=== PATIENT | female | born 2000 | race Caucasian/White ===

== ENCOUNTER 2025-01-01 12:56 | Emergency (ER) | payer BC ==
[~2025-01-01] VITALS: Ht 162.6 cm; Wt 62.6 kg
[~2025-01-01 12:56] MED LIST: ENSKYCE1 EACH PO; ESCITALOPRAM OX10 MG PO; MECLIZINE HCL25 MG PO; OMEPRAZOLE20 MG PO; ONDANSETRON ODT4 MG PO
[2025-01-01] MEDS ORDERED: ASPIRIN 325 MG TAB PO ONE (13:45)
[2025-01-01 14:03] LABS: BASOPHILS 0.4 % (0-2); EOSINOPHILS 0.5 % (0-6); HEMATOCRIT 38.8 % (35.0-50.0); HEMOGLOBIN 13.6 g/dL (12.0-18.0); LYMPHOCYTES 31.8 % (24-44); MCH 32.1 (27-36); MCV 91.6 fl (81-99); MONOCYTES 7.7 % (0-12); NEUTROPHILS 59.6 % (39-80); PLATELET COUNT 266 K/uL (140-440); RBC 4.24 M/ul (4.3-5.7)
[2025-01-01 14:25] LABS: ALBUMIN 3.7 g/dL (3.4-5.0); ALBUMIN/GLOBULIN RATIO 1.12 (1.1-2.4); ALKALINE PHOSPHATASE 48 U/L (46-116); ALT (SGPT) 22 U/L (14-59); ANION GAP 11.9 (7-21); AST (SGOT) 13 U/L (15-37); BILIRUBIN, TOTAL 0.4 mg/dL (0.2-1.0); BUN/CREATININE RATIO 17.74 (6.0-28.6); CALCIUM 9.1 mg/dL (8.5-10.1); CARBON DIOXIDE 27 mmol/L (21-32); CHLORIDE 105 mmol/L (98-107); CREATININE, SERUM 0.62 mg/dL (0.55-1.02); GLOMERULAR FILTRATION RATE,EST 127 mL/min (>60); MAGNESIUM 2.1 mg/dL (1.8-2.4); POTASSIUM 3.9 mmol/L (3.5-5.1); UREA NITROGEN 11 mg/dL (7-18)
[2025-01-01] MEDS ORDERED: ONDANSETRON ODT8 MG PO (15:06)
[2025-01-01] MEDS ORDERED: LIDODERM1 EACH TOP (15:06)
[2025-01-01 15:15] VITALS: BP 111/80
--- NOTE | 2025-01-01 22:26 | EKG ---
[facility] [address] [place] [address] Signed Normal sinus rhythm with sinus arrhythmia Normal ECG No previous ECGs available Confirmed by Farooq Petty MD () on 01/01/2025 10:26:40 PM Electronically Signed By: FAROOQ PETTY MD 01/01/252225 PATIENT NAME: RUSTAM KU Electrocardiogram DATE OF : [birth year] PHYSICIAN: FAROOQ PETTY MD REPORT #: [id number] REPORT IS CONFIDENTIAL AND NOT TO BE RELEASED WITHOUT AUTHORIZATION
== END 2025-01-01 15:15 | disposition home or self-care (01) ==
LOC: ED 12:56
PROVIDERS: Emergency Medicine
DX: R07.89 Other chest pain (principal); R11.2 Nausea with vomiting, unspecified; Z79.3 Long term (current) use of hormonal contraceptives
CPT/HCPCS: 36415; 71046; 80053; 83735; 83880; 84484; 85025; 85379; 93005; 93010; 99285-25